=== PATIENT | male | born 1995 | race Caucasian/White ===

== ENCOUNTER 2019-03-01 17:26 | Emergency (ER) | payer BC ==
[~2019-03-01] VITALS: Ht 185.4 cm; Wt 81.3 kg
[2019-03-01 17:37] VITALS: BP 121/56; PULSE 75; RESP 18; Ht 185.4 cm; Wt 81.3 kg
[2019-03-01] MEDS ORDERED: IBUP-1542 PO (19:35)
--- NOTE | 2019-03-01 19:35 | ERD ---
ER Documentation Chief Complaint Chief Complaint chest pressure 1hr ago, resolved, unprovoked, nonradiating, Hx:myocarditis HPI Patient is a 23-year-old male with no medical problems who presents with chest pain. The patient said that at 4:30 PM he had chest pain which lasted 20 minutes and went away. It is gone now. He said that it felt like "trapped gas". 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 He has had a follow-up from that episode though and has been cleared from cardiology. He said that his primary doctor is in [place]. ROS All systems reviewed and are negative except as per history of present illness. Medications Home Meds Active Scripts Ibuprofen* (Motrin*) 600 Mg Tab, 600 MG PO Q6H PRN for PAIN AND OR ELEVATED TEMP, #30 TAB Prov:OPAL GALEANO MD 03/01/19 Allergies Allergies: Coded Allergies: No Known Allergy (Unverified , 03/01/19) FmHx Family History: No diabetes Physical Exam Vitals Vital Signs Date Temp Pulse Resp B/P (MAP) Pulse Ox O2 O2 Flow FiO2 Time Delivery Rate 03/01/19 97.7 75 18 121/56 97 17:37 (77) Physical Exam Const: No acute distress Head: Atraumatic Eyes: Normal Conjunctiva ENT: Normal External Ears, Nose and Mouth. Neck: Full range of motion. No meningismus. Resp: Clear to auscultation bilaterally Cardio: Regular rate and rhythm, no murmurs Abd: Soft, non tender, non distended. Normal bowel sounds Skin: No petechiae or rashes Back: No midline or flank tenderness Ext: No cyanosis, or edema Neur: Awake and alert Psych: Normal Mood and Affect Procedures/MDM EKG read by me: Rate/Rhythm: Regular rate and rhythm at a rate of 68 Intervals: Normal Impression: No evidence of ischemia or arrhythmia Patient is a 23-year-old male with no medical problems who presents with chest pain. He no longer has chest pain and is well-appearing in the emergency department. EKG shows no signs of ischemia or arrhythmia. I believe outpatient management is appropriate. I doubt acute coronary syndrome, pneumonia, pneumothorax, pulmonary embolism, or aortic dissection. I doubt perimyocarditis as well. The patient will be discharged with ibuprofen for symptomatic relief. Departure Diagnosis: Primary Impression: Chest pain Chest pain type: unspecified Qualified Codes: R07.9 - Chest pain, unspecified Condition: Fair Patient Instructions: Chest Pain, Uncertain Cause Referrals: Your doctor Additional Instructions: Call your primary care doctor TOMORROW for an appointment during the next 1 WEEK.Tell the trade union secretary that you were referred from this facility.See the doctor sooner or return here if your condition worsens before your appointment time. OPAL GALEANO MD Mar 01, 2019 19:35
== END 2019-03-01 19:55 | disposition home or self-care (01) ==
LOC: FTE 17:26
DX: R07.89 Other chest pain (principal)
CPT/HCPCS: 93005